=== PATIENT | male | born 1950 | race African-American/Black ===

== ENCOUNTER 2019-02-20 11:23 | Emergency (ER) | payer MEDICARE, BC ==
[2019-02-20] MEDS ORDERED: SODIUM CHLORIDE 0.9% 500 ML 500 ML IV ONE (12:42)
--- NOTE | 2019-02-20 12:42 | ED ---
General Adult HPI - General Chief complaint: Dizziness Stated complaint: Dizziness Time Seen by Provider: 02/20/19 11:30 Source: patient, RN notes reviewed Mode of arrival: ambulatory Limitations: no limitations - History of Present Illness Initial comments: This is a 68-year-old male who presents to the emergency department complaining of having had a syncopal episode. Patient states he was in his doctor's office sitting in a chair and he was getting some news about his cholesterol being high and that made him nervous and he became lightheaded and passed out. According to the staff he was only out for a few seconds and he did not fall because they caught him before he went to the ground. Patient states this has happened in the past he has quite a significant white coat syndrome. Patient denied any chest pain palpitations difficulty breathing or shortness of breath before or after the event. Patient states he felt completely normal prior to the event he did not eat breakfast or drink any coffee or any fluid prior to eating seen at the doctor's office which is abnormal for him. Patient states after he woke up he felt completely back to normal and had no symptoms either. Patient currently has no complaint. - Related Data Home Medications Medication Instructions Recorded Confirmed Carvedilol [Coreg] 12.5 mg PO BID 02/20/19 02/20/19 Isosorbide Mononitrate ER [Imdur] 30 mg PO DAILY 02/20/19 02/20/19 hydrALAZINE HCL [Apresoline] 50 mg PO TID 02/20/19 02/20/19 Previous Rx's Medication Instructions Recorded Aspirin EC [Ecotrin Low Dose] 81 mg PO DAILY #30 tablet. 07/15/15 Atorvastatin [Lipitor] 80 mg PO HS #30 tab 07/15/15 Allergies Allergy/AdvReac Type Severity Reaction Status Date / Time aspirin AdvReac Nausea & Verified 02/20/19 13:26 Vomiting & Diarrhea Review of Systems ROS Statement: Those systems with pertinent positive or pertinent negative responses have been documented in the HPI. ROS Other: All systems not noted in ROS Statement are negative. Past Medical History Past Medical History: GERD/Reflux, Syncope History of Any Multi-Drug Resistant Organisms: None Reported Past Surgical History: No Surgical Hx Reported Additional Past Surgical History / Comment(s): lt knee sx scope and scraping done Past Anesthesia/Blood Transfusion Reactions: No Reported Reaction Past Psychological History: No Psychological Hx Reported Smoking Status: Former smoker Past Alcohol Use History: None Reported Past Drug Use History: None Reported - Past Family History Father Family Medical History: Coronary Artery Disease (CAD), Hypertension Additional Family Medical History / Comment(s): cabg Mother Family Medical History: Coronary Artery Disease (CAD) Additional Family Medical History / Comment(s): aaa, cabg General Exam - General Exam Comments Initial Comments: GENERAL: Patient is well-developed and well-nourished. Patient is nontoxic and well- hydrated and is in no acute distress. ENT: Neck is soft and supple. No significant lymphadenopathy is noted. Oropharynx is clear. Moist mucous membranes. Neck has full range of motion without eliciting any pain. EYES: The sclera were anicteric and conjunctiva were pink and moist. Extraocular movements were intact and pupils were equal round and reactive to light. Eyelids were unremarkable. PULMONARY: Unlabored respirations. Good breath sounds bilaterally. No audible rales rhonchi or wheezing was noted. CARDIOVASCULAR: There is a regular rate and rhythm without any murmurs gallops or rubs. ABDOMEN: Soft and nontender with normal bowel sounds. No palpable organomegaly was noted. There is no palpable pulsatile mass. SKIN: Skin is clear with no lesions or rashes and otherwise unremarkable. NEUROLOGIC: Patient is alert and oriented x3. Cranial nerves II through XII are grossly intact. Motor and sensory are also intact. Normal speech, volume and content. Symmetrical smile. MUSCULOSKELETAL: Normal extremities with adequate strength and full range of motion. No lower extremity swelling or edema. No calf tenderness. LYMPHATICS: No significant lymphadenopathy is noted PSYCHIATRIC: Normal psychiatric evaluation. Limitations: no limitations Course Vital Signs 02/20/19 02/20/19 02/20/19 11:26 13:15 13:45 Temperature 97.4 F L Pulse Rate 61 56 L Pulse Rate [ 66 Sitting Staff Pharmacist] Pulse Rate [ 65 Standing Staff Pharmacist ] Pulse Rate [ 61 Supine Staff Pharmacist] Respiratory 16 18 Rate Blood Pressure 156/99 163/99 Blood Pressure 154/104 [Left Arm Sitting] Blood Pressure 158/102 [Left Arm Standing] Blood Pressure 152/94 [Left Arm Supine] O2 Sat by Pulse 98 100 Oximetry Medical Decision Making - Medical Decision Making Patient has been a symptomatic throughout his ED stay. Patient's orthostatics were normal. Patient would like to go home at this point time. - Lab Data Result diagrams: 02/20/19 11:50 02/20/19 11:50 Lab Results 02/20/19 02/20/19 02/20/19 Range/Units 11:50 11:50 11:50 WBC 7.3 (3.8-10.6) k/uL RBC 4.93 (4.30-5.90) m/uL Hgb 13.2 (13.0-17.5) gm/dL Hct 41.3 (39.0-53.0) % MCV 83.7 (80.0-100.0) fL MCH 26.8 (25.0-35.0) pg MCHC 32.1 (31.0-37.0) g/dL RDW 13.8 (11.5-15.5) % Plt Count 200 (150-450) k/uL Neutrophils % 77 % Lymphocytes % 15 % Monocytes % 4 % Eosinophils % 2 % Basophils % 1 % Neutrophils # 5.7 (1.3-7.7) k/uL Lymphocytes # 1.1 (1.0-4.8) k/uL Monocytes # 0.3 (0-1.0) k/uL Eosinophils # 0.1 (0-0.7) k/uL Basophils # 0.1 (0-0.2) k/uL PT 11.7 (9.0-12.0) sec INR 1.1 (<1.2) Sodium 138 (137-145) mmol/L Potassium 4.2 (3.5-5.1) mmol/L Chloride 105 (98-107) mmol/L Carbon Dioxide 27 (22-30) mmol/L Anion Gap 6 mmol/L BUN 18 (9-20) mg/dL Creatinine 1.31 H (0.66-1.25) mg/dL Est GFR (CKD-EPI)AfAm 65 (>60 ml/min/1.73 sqM) Est GFR (CKD-EPI)NonAf 56 (>60 ml/min/1.73 sqM) Glucose 83 (74-99) mg/dL Calcium 9.3 (8.4-10.2) mg/dL Total Bilirubin 1.0 (0.2-1.3) mg/dL AST 24 (17-59) U/L ALT 31 (21-72) U/L Alkaline Phosphatase 61 (38-126) U/L Troponin I (0.000-0.034) ng/mL Total Protein 7.2 (6.3-8.2) g/dL Albumin 4.1 (3.5-5.0) g/dL 02/20/19 Range/Units 11:50 WBC (3.8-10.6) k/uL RBC (4.30-5.90) m/uL Hgb (13.0-17.5) gm/dL Hct (39.0-53.0) % MCV (80.0-100.0) fL MCH (25.0-35.0) pg MCHC (31.0-37.0) g/dL RDW (11.5-15.5) % Plt Count (150-450) k/uL Neutrophils % % Lymphocytes % % Monocytes % % Eosinophils % % Basophils % % Neutrophils # (1.3-7.7) k/uL Lymphocytes # (1.0-4.8) k/uL Monocytes # (0-1.0) k/uL Eosinophils # (0-0.7) k/uL Basophils # (0-0.2) k/uL PT (9.0-12.0) sec INR (<1.2) Sodium (137-145) mmol/L Potassium (3.5-5.1) mmol/L Chloride (98-107) mmol/L Carbon Dioxide (22-30) mmol/L Anion Gap mmol/L BUN (9-20) mg/dL Creatinine (0.66-1.25) mg/dL Est GFR (CKD-EPI)AfAm (>60 ml/min/1.73 sqM) Est GFR (CKD-EPI)NonAf (>60 ml/min/1.73 sqM) Glucose (74-99) mg/dL Calcium (8.4-10.2) mg/dL Total Bilirubin (0.2-1.3) mg/dL AST (17-59) U/L ALT (21-72) U/L Alkaline Phosphatase (38-126) U/L Troponin I 0.013 (0.000-0.034) ng/mL Total Protein (6.3-8.2) g/dL Albumin (3.5-5.0) g/dL Disposition Clinical Impression: Orthostatic syncope Disposition: HOME SELF-CARE Condition: Good Instructions (If sedation given, give patient instructions): Syncope (ED) Is patient prescribed a controlled substance at d/c from ED?: No Referrals: Ananda Naik MD [Primary Care Provider] - 1-2 days Time of Disposition: 14:08
[2019-02-20 13:02] LABS: Basophils # (A) 0.1 k/uL (0-0.2); Basophils % (A) 1 %; Eosinophils # (A) 0.1 k/uL (0-0.7); Eosinophils % (A) 2 %; HCT 41.3 % (39.0-53.0); HGB 13.2 gm/dL (13.0-17.5); Lymphocytes # (A) 1.1 k/uL (1.0-4.8); Lymphocytes % (A) 15 %; MCH 26.8 pg (25.0-35.0); MCHC 32.1 g/dL (31.0-37.0); MCV 83.7 fL (80.0-100.0); Mean Platelet Volume 9.1; Monocytes # (A) 0.3 k/uL (0-1.0); Monocytes % (A) 4 %; Neutrophils # (A) 5.7 k/uL (1.3-7.7); Neutrophils % (A) 77 %; Platelet Count 200 k/uL (150-450); RBC 4.93 m/uL (4.30-5.90); RDW 13.8 % (11.5-15.5); WBC 7.3 k/uL (3.8-10.6)
[2019-02-20 13:06] LABS: Albumin 4.1 g/dL (3.5-5.0); Calcium 9.3 mg/dL (8.4-10.2); Potassium 4.2 mmol/L (3.5-5.1); Total Protein 7.2 g/dL (6.3-8.2)
[2019-02-20 13:22] LABS: INR 1.1 (<1.2)
[2019-02-20 13:23] LABS: Prothrombin Time 11.7 sec (9.0-12.0)
[2019-02-20 13:55] VITALS: RESP 18
[2019-02-20 14:26] VITALS: BP 168/95; PULSE 61; TEMP 97.8
== END 2019-02-20 14:25 | disposition home or self-care (01) ==
LOC: EC 11:23
DX: R55 Syncope and collapse (principal); R42 Dizziness and giddiness; Z79.02 Long term (current) use of antithrombotics/antiplatelets; Z79.899 Other long term (current) drug therapy; Z88.6 Allergy status to analgesic agent; Z87.891 Personal history of nicotine dependence
CPT/HCPCS: 36415; 80053; 84484; 85025; 85610; 93005; 99284

== ENCOUNTER 2023-11-10 20:01 | Observation (INO) | payer MEDICARE, BC ==
[2023-11-10 20:41] LABS: Basophils % (A) 1 %; Eosinophils # (A) 0.2 k/uL (0-0.7); Eosinophils % (A) 3 %; HCT 43.8 % (39.0-53.0); HGB 14.1 gm/dL (13.0-17.5); Hypochromasia Slight; Lymphocytes # (A) 1.2 k/uL (1.0-4.8); Lymphocytes % (A) 26 %; MCH 28.8 pg (25.0-35.0); MCHC 32.1 g/dL (31.0-37.0); MCV 89.6 fL (80.0-100.0); Mean Platelet Volume 10.9; Monocytes # (A) 0.3 k/uL (0-1.0); Monocytes % (A) 6 %; Neutrophils # (A) 2.9 k/uL (1.3-7.7); Neutrophils % (A) 62 %; Platelet Count 153 k/uL (150-450); RBC 4.89 m/uL (4.30-5.90); WBC 4.6 k/uL (3.8-10.6)
--- NOTE | 2023-11-10 20:51 | XR ---
EXAMINATION TYPE: XR chest 2V DATE OF EXAM: 11/10/2023 8:32 PM CLINICAL INDICATION:Male, 73 years old with history of difficulty breathing; COMPARISON: Chest radiographs from 07/14/2015. TECHNIQUE: XR chest 2V Frontal and lateral views of the chest. FINDINGS: Lungs/Pleura there is fluid layering along the lung fissures bilaterally.: There is no evidence of fo andrew consolidation, or pneumothorax. Pulmonary vascularity: Unremarkable. Heart/mediastinum: Cardiomediastinal silhouette is unremarkable. Atherosclerotic calcifications are seen in the aorta. Musculoskeletal: No acute osseous pathology. Midline sternotomy wires are noted. Other findings: None IMPRESSION: Cardiomegaly with pleural effusions layering along the fissures. Correlate with serum BNP.
[2023-11-10 20:52] LABS: INR 1.1 (<1.2); Partial Thromboplastin Time 26.6 sec (22.0-30.0); Prothrombin Time 12.2 sec (10.0-12.5)
[2023-11-10 21:09] LABS: ALT 31 U/L (4-49); AST 31 U/L (17-59); African American GFR (CKD) 53 (>60 ml/min/1.73 sqM); Alkaline Phosphatase 83 U/L (38-126); Anion Gap 12 mmol/L; Blood Urea Nitrogen 23 mg/dL (9-20); Carbon Dioxide 24 mmol/L (22-30); Chloride 104 mmol/L (98-107); Glucose 107 mg/dL (74-99); Non-African American GFR(CKD) 46 (>60 ml/min/1.73 sqM); Potassium 3.9 mmol/L (3.5-5.1); Sodium 140 mmol/L (137-145); Total Bilirubin 1.3 mg/dL (0.2-1.3)
[2023-11-10 21:16] LABS: NT-Pro-B-Type Natriuretic Pept 6650 pg/mL
--- NOTE | 2023-11-10 23:40 | ED ---
General Adult HPI - General Source: patient Mode of arrival: ambulatory Limitations: no limitations <Jose A Adair - Last Filed: 11/10/23 23:41> <Erick Marques - Last Filed: 11/11/23 04:02> - General Chief complaint: Shortness of Breath Stated complaint: SOB Time Seen by Provider: 11/10/23 23:40 - History of Present Illness Initial comments: 73-year-old male presents to the ED with a chief complaint of shortness of breath. Patient reports over the past month or so has had increasing shortness of breath and swelling in his bilateral lower legs. (Jose A Adair) 73-year-old male presenting with chief complaint of shortness of breath. Patient reports that shortness of breath has been increasing over about 3 weeks. He also noted increasing lower extremity swelling which prompted him to come in today. He is having no chest pain. Patient reports that he has not been taking his blood pressure medication. He states that previously he had severe lip swelling to one of his blood pressure medications and he has been afraid to take his new medication and cause a similar reaction. No palpitations. No abdominal pain, nausea, vomiting. No numbness, tingling, weakness. (Erick Marques) - Related Data Home Medications Medication Instructions Recorded Confirmed Isosorbide Mononitrate ER [Imdur] 30 mg PO DAILY 02/20/19 02/20/19 carvediloL [Coreg] 12.5 mg PO BID 02/20/19 02/20/19 hydrALAZINE HCL [Apresoline] 50 mg PO TID 02/20/19 02/20/19 Previous Rx's Medication Instructions Recorded Aspirin EC [Ecotrin Low Dose] 81 mg PO DAILY #30 tablet. 07/15/15 Atorvastatin [Lipitor] 80 mg PO HS #30 tab 07/15/15 Allergies Allergy/AdvReac Type Severity Reaction Status Date / Time aspirin AdvReac Nausea & Verified 11/10/23 20:10 Vomiting & Diarrhea Review of Systems ROS Other: All systems not noted in ROS Statement are negative. <Jose A Adair - Last Filed: 11/10/23 23:41> ROS Other: All systems not noted in ROS Statement are negative. <Erick Marques - Last Filed: 11/11/23 04:02> ROS Statement: Those systems with pertinent positive or pertinent negative responses have been documented in the HPI. Past Medical History Past Medical History: GERD/Reflux, Syncope History of Any Multi-Drug Resistant Organisms: None Reported Past Surgical History: No Surgical Hx Reported Additional Past Surgical History / Comment(s): lt knee sx scope and scraping done Past Anesthesia/Blood Transfusion Reactions: No Reported Reaction Past Psychological History: No Psychological Hx Reported Past Alcohol Use History: None Reported Past Drug Use History: None Reported - Past Family History Father Family Medical History: Coronary Artery Disease (CAD), Hypertension Additional Family Medical History / Comment(s): cabg Mother Family Medical History: Coronary Artery Disease (CAD) Additional Family Medical History / Comment(s): aaa, cabg <Jose A Adair - Last Filed: 11/10/23 23:41> General Exam Limitations: no limitations <Jose A Adair - Last Filed: 11/10/23 23:41> Limitations: no limitations General appearance: alert, in no apparent distress Head exam: Present: atraumatic, normocephalic Eye exam: Present: normal appearance Neck exam: Present: normal inspection Respiratory exam: Present: normal lung sounds bilaterally. Absent: respiratory distress, wheezes, rales, rhonchi, stridor Cardiovascular Exam: Present: regular rate, normal rhythm, normal heart sounds. Absent: systolic murmur, diastolic murmur, rubs, gallop, clicks Extremities exam: Present: pedal edema Neurological exam: Present: alert, oriented X3 Psychiatric exam: Present: normal affect, normal mood Skin exam: Present: warm, dry <Erick Marques - Last Filed: 11/11/23 04:02> - General Exam Comments Initial Comments: Visual Physical Exam Vital signs reviewed General: Well-appearing, nontoxic, no acute distress. Head: Normocephalic, atraumatic Eyes: PERRLA, EOMI ENT: Airway patent Chest: Nonlabored breathing Skin: No visual rash, normal skin tone Neuro: Alert and oriented 3 Musculoskeletal: No gross abnormalities (Jose A Adair) Course Vital Signs 11/10/23 11/11/23 11/11/23 20:08 01:37 01:46 Temperature 97.4 F L Pulse Rate 127 H 81 79 Respiratory 18 17 17 Rate Blood Pressure 175/106 145/125 135/111 O2 Sat by Pulse 97 98 98 Oximetry 11/11/23 11/11/23 01:48 02:51 Temperature Pulse Rate 100 Respiratory 16 19 Rate Blood Pressure 139/111 O2 Sat by Pulse 99 Oximetry EKG Findings - EKG Comments: EKG Findings:: Sinus rhythm with occasional ventricular premature complexes. Ventricular rate 93. DC interval 155. QRS 90. QT 350. QTc 401. <Erick Marques - Last Filed: 11/11/23 04:02> Medical Decision Making - Lab Data Result diagrams: 11/10/23 20:11 11/10/23 20:11 <Jose A Adair - Last Filed: 11/10/23 23:41> - Lab Data Result diagrams: 11/10/23 20:11 11/10/23 20:11 <Erick Marques - Last Filed: 11/11/23 04:02> - Medical Decision Making Quicknote portion performed. Signed Jose A Adair PA-C (Jose A Adair) Was pt. sent in by a medical professional or institution ([facility], [facility], urgent care, hospital, or fpc...) When possible be specific @ -No Did you speak to anyone other than the patient for history (EMS, parent, family, police, friend...)? What history was obtained from this source @ -No Did you review nursing and triage notes (agree or disagree)? Why? @ -I reviewed and agree with nursing and triage notes Were old charts reviewed (outside hosp., previous admission, EMS record, old EKG, old radiological studies, urgent care reports/EKG's, fpc records)? Report findings @ -No old charts were reviewed Differential Diagnosis (chest pain, altered mental status, abdominal pain women, abdominal pain men, vaginal bleeding, weakness, fever, dyspnea, syncope, headache, dizziness, GI bleed, back pain, seizure, CVA, palpatations, mental health, musculoskeletal)? @ -MDM Differential Dyspnea: Coronary syndrome, arrhythmia, tamponade, asthma, COPD, pulmonary embolism, pneumonia, pneumothorax, pulmonary effusion, anaphylaxis, diabetic ketoacidosis, flailed chest, pulmonary contusion, diaphragmatic rupture, anemia, neuromuscular this is not meant to be an all-inclusive list. EKG interpreted by me (3pts min.). @ -As above X-rays interpreted by me (1pt min.). @ -Chest x-ray shows cardiomegaly with pleural effusions layering along fissures. Correlate with serum BNP. CT interpreted by me (1pt min.). @ -None done U/S interpreted by me (1pt. min.). @ -None done What testing was considered but not performed or refused? (CT, X-rays, U/S, labs)? Why? @ -None What meds were considered but not given or refused? Why? @ -None Did you discuss the management of the patient with other professionals (professionals i.e. DrDeonna, PA, [employer] [facility], lab, RT, psych nurse, community mental health social worker, date night sitter, teacher, staff antisubmarine officer, transplant case manager)? Give summary @ -My attending spoke with the [facility] provider on-call who accepted admission Was smoking cessation discussed for >3mins.? @ -No Was critical care preformed (if so, how long)? @ -No Were there social determinants of health that impacted care today? How? (Homelessness, low income, unemployed, alcoholism, drug addiction, transportation, low edu. Level, literacy, decrease access to med. care, shelter, rehab)? @ -No Was there de-escalation of care discussed even if they declined (Discuss DNR or withdrawal of care, Hospice)? DNR status @ -No What co-morbidities impacted this encounter? (DM, HTN, Smoking, COPD, CAD, Cancer, CVA, ARF, Chemo, Hep., AIDS, mental health diagnosis, sleep apnea, morbid obesity)? @ -Hypertension, CHF Was patient admitted / discharged? Hospital course, mention meds given and route, prescriptions, significant lab abnormalities, going to OR and other pertinent info. @ -73-year-old male presenting with chief complaint of shortness of breath or lower extremity swelling. History of physical exam were conducted. BNP 6650 troponin 0.022. Chest x-ray shows cardiomegaly with pleural effusions. Patient is initially hypertensive at 175/106, he is given 10 mg of hydralazine IVP. He is given Lasix 40 mg. He will be admitted for CHF exacerbation. Patient is agreeable with this plan. I discussed this case with my attending Dr. Madrigal Undiagnosed new problem with uncertain prognosis? @ -No Drug Therapy requiring intensive monitoring for toxicity (Heparin, Nitro, Insulin, Cardizem)? @ -No Were any procedures done? @ -No Diagnosis/symptom? @ -CHF Acute, or Chronic, or Acute on Chronic? @ -Acute on chronic Uncomplicated (without systemic symptoms) or Complicated (systemic symptoms)? @ -Complicated Side effects of treatment? @ -No Exacerbation, Progression, or Severe Exacerbation? @ -Exacerbation Poses a threat to life or bodily function? How? (Chest pain, USA, ID, pneumonia, PE, COPD, DKA, ARF, appy, cholecystitis, CVA, Diverticulitis, Homicidal, Suicidal, threat to staff... and all critical care pts) @ -Yes (Erick Marques) - Lab Data Lab Results 11/10/23 11/10/23 11/10/23 Range/Units 20:11 20:11 20:11 WBC 4.6 (3.8-10.6) k/uL RBC 4.89 (4.30-5.90) m/uL Hgb 14.1 (13.0-17.5) gm/dL Hct 43.8 (39.0-53.0) % MCV 89.6 (80.0-100.0) fL MCH 28.8 (25.0-35.0) pg MCHC 32.1 (31.0-37.0) g/dL RDW 14.0 (11.5-15.5) % Plt Count 153 (150-450) k/uL MPV 10.9 Neutrophils % 62 % Lymphocytes % 26 % Monocytes % 6 % Eosinophils % 3 % Basophils % 1 % Neutrophils # 2.9 (1.3-7.7) k/uL Lymphocytes # 1.2 (1.0-4.8) k/uL Monocytes # 0.3 (0-1.0) k/uL Eosinophils # 0.2 (0-0.7) k/uL Basophils # 0.0 (0-0.2) k/uL Hypochromasia Slight PT 12.2 (10.0-12.5) sec INR 1.1 (<1.2) APTT 26.6 (22.0-30.0) sec Sodium 140 (137-145) mmol/L Potassium 3.9 (3.5-5.1) mmol/L Chloride 104 (98-107) mmol/L Carbon Dioxide 24 (22-30) mmol/L Anion Gap 12 mmol/L BUN 23 H (9-20) mg/dL Creatinine 1.51 H (0.66-1.25) mg/dL Est GFR (CKD-EPI)AfAm 53 (>60 ml/min/1.73 sqM) Est GFR (CKD-EPI)NonAf 46 (>60 ml/min/1.73 sqM) Glucose 107 H (74-99) mg/dL Calcium 9.0 (8.4-10.2) mg/dL Total Bilirubin 1.3 (0.2-1.3) mg/dL AST 31 (17-59) U/L ALT 31 (4-49) U/L Alkaline Phosphatase 83 (38-126) U/L Troponin I (0.000-0.034) ng/mL NT-Pro-B Natriuret Pep 6650 pg/mL Total Protein 7.0 (6.3-8.2) g/dL Albumin 4.0 (3.5-5.0) g/dL 11/10/23 Range/Units 20:11 WBC (3.8-10.6) k/uL RBC (4.30-5.90) m/uL Hgb (13.0-17.5) gm/dL Hct (39.0-53.0) % MCV (80.0-100.0) fL MCH (25.0-35.0) pg MCHC (31.0-37.0) g/dL RDW (11.5-15.5) % Plt Count (150-450) k/uL MPV Neutrophils % % Lymphocytes % % Monocytes % % Eosinophils % % Basophils % % Neutrophils # (1.3-7.7) k/uL Lymphocytes # (1.0-4.8) k/uL Monocytes # (0-1.0) k/uL Eosinophils # (0-0.7) k/uL Basophils # (0-0.2) k/uL Hypochromasia PT (10.0-12.5) sec INR (<1.2) APTT (22.0-30.0) sec Sodium (137-145) mmol/L Potassium (3.5-5.1) mmol/L Chloride (98-107) mmol/L Carbon Dioxide (22-30) mmol/L Anion Gap mmol/L BUN (9-20) mg/dL Creatinine (0.66-1.25) mg/dL Est GFR (CKD-EPI)AfAm (>60 ml/min/1.73 sqM) Est GFR (CKD-EPI)NonAf (>60 ml/min/1.73 sqM) Glucose (74-99) mg/dL Calcium (8.4-10.2) mg/dL Total Bilirubin (0.2-1.3) mg/dL AST (17-59) U/L ALT (4-49) U/L Alkaline Phosphatase (38-126) U/L Troponin I 0.022 (0.000-0.034) ng/mL NT-Pro-B Natriuret Pep pg/mL Total Protein (6.3-8.2) g/dL Albumin (3.5-5.0) g/dL Disposition <Jose A Adair - Last Filed: 11/10/23 23:41> Time of Disposition: 02:06 <Erick Marques - Last Filed: 11/11/23 04:02> Clinical Impression: CHF (congestive heart failure) Disposition: ADMITTED IP TO THIS HOSP Condition: Fair
[2023-11-11] MEDS ORDERED: hydrALAZINE HCL 20 MG/ML 1 ML VIAL IVP STA (01:17)
[2023-11-11] MEDS ORDERED: NALOXONE 0.4 MG/ML 1 ML VIAL IV PRN (02:04)
[2023-11-11] MEDS ORDERED: FUROSEMIDE 10 MG/ML 4 ML VIAL IV STA (02:05)
[2023-11-11] MEDS ORDERED: carvediloL 3.125 MG TAB PO SCH (08:30)
[2023-11-11] MEDS ORDERED: METOPROLOL SUCCINATE (ER) 25 MG TAB.ER.24H PO SCH (09:00)
[2023-11-11] MEDS: ASPIRIN 81 MG PO SCH (09:03)
[2023-11-11] MEDS: hydrALAZINE HCL 25 MG TAB PO SCH ×3 (09:04→22:49)
[2023-11-11] MEDS: ISOSORBIDE DINITRATE 10 MG TAB PO SCH ×3 (09:05→22:49)
[2023-11-11] MEDS: DAPAGLIFLOZIN PROPANEDIOL 10 MG TABLET PO SCH (09:06)
[2023-11-11] MEDS: FUROSEMIDE 10 MG/ML 4 ML VIAL IV SCH ×2 (09:07→20:38)
--- NOTE | 2023-11-11 10:16 | P.CRDCN ---
History of Present Illness History of present illness: HISTORY OF PRESENT ILLNESS: This is a 73 year old male with a past medical history significant for coronary artery disease with previous four-vessel CABG in 2015, ischemic cardiomyopathy, hypertension, hyperlipidemia, and former nicotine dependence. Patient used to follow in the office with Dr Goodman but has not been seen since 2019. We have been asked to see the patient in consultation for congestive heart failure. Patient examined at the bedside in the emergency room. Patient presented to the hospital with a chief complaint of shortness of breath and lower extremity edema. The patient states he has not seen a gore maker or a primary care physician and a few years. He states he has been doing well over the past couple years despite not seen a physician until the last couple weeks. He states he has been getting progressively more short of breath and having increased lower extremity edema. He also reports that he stopped taking all of his medications because he felt well and did not think he needed them. He does report taking a baby aspirin daily. * EKG reveals sinus mechanism with PVCs. * Chest xray cardiomegaly with pleural effusions * Laboratory data: Creatinine 1.51. Troponin negative 2. ProBNP 6650. * Current home cardiac medications include aspirin 81 mg daily * Most recent echocardiogram obtained in 2019 revealed ejection fraction 38% with mild MR and mild TR * Patient underwent 4 vessel CABG in June 2015 with DUQUE to LAD, VGOM1, VGD1, VGPDA REVIEW OF SYSTEMS: At the time of my exam: CONSTITUTIONAL: Denies fever or chills. HEENT: Denies blurred vision, vision changes, or eye pain. Denies hemoptysis CARDIOVASCULAR: Denies chest pain. Denies orthopnea. Denies PND. Denies palpitations RESPIRATORY: Reports shortness of breath. GASTROINTESTINAL: Denies abdominal pain. Denies nausea or vomiting. HEMATOLOGIC: Denies bleeding disorders. GENITOURINARY: Denies any blood in urine. SKIN: Denies pruitis. Denies rash. PHYSICAL EXAM: VITAL SIGNS: Reviewed. GENERAL: Well-developed in no acute distress. HEENT: Head is normocephalic. Pupils are equal, round. Sclerae anicteric. Mucous membranes of the mouth are moist. Neck supple. No JVD or thyromegaly LUNGS: Respirations even and unlabored. Lungs with bibasilar crackles noted HEART: Regular rate and rhythm. S1 and S2 heard. Systolic murmur noted at the right sternal border and also a 3/6 systolic murmur noted at the apex ABDOMEN: Soft. Nondistended. Nontender. EXTREMITIES: Normal range of motion. No clubbing or cyanosis. Peripheral pulses intact. 3+ pitting lower extremity edema, right greater than left NEUROLOGIC: Awake and alert. Oriented x 3. ASSESSMENT: Shortness of breath Acute heart failure with reduced ejection fraction Coronary artery disease with four-vessel CABG in 2015 Significant systolic murmur suggestive of mitral regurgitation Ischemic cardiomyopathy Acute kidney injury Hypertension Hyperlipidemia Former nicotine dependence Medication noncompliance ALLERGY to cary inhibitors with severe angioedema PLAN: Obtain 2-D echo to assess cardiac structure and function Begin IV Lasix 40 mg every 12 hours Daily weights, accurate I&O, and monitoring of kidney function Add aspirin 81 mg daily, atorvastatin 40 mg at night, hydralazine 25 mg 3 times a day, Isordil 10 mg 3 times a day, Toprol 25 mg daily and Farxiga 10 mg daily Patient with ALLERGY to cary inhibitors with severe angioedema Add Aldactone tomorrow if kidney function improves Medication compliance encouraged. Patient verbalized understanding Further recommendations pending patient's course Nurse practitioner note has been reviewed by physician. Signing provider agrees with the documented findings, assessment, and plan of care. Past Medical History Past Medical History: GERD/Reflux, Syncope History of Any Multi-Drug Resistant Organisms: None Reported Past Surgical History: No Surgical Hx Reported Additional Past Surgical History / Comment(s): lt knee sx scope and scraping done Past Anesthesia/Blood Transfusion Reactions: No Reported Reaction Past Psychological History: No Psychological Hx Reported Past Alcohol Use History: None Reported Past Drug Use History: None Reported - Past Family History Father Family Medical History: Coronary Artery Disease (CAD), Hypertension Additional Family Medical History / Comment(s): cabg Mother Family Medical History: Coronary Artery Disease (CAD) Additional Family Medical History / Comment(s): aaa, cabg Medications and Allergies Home Medications Medication Instructions Recorded Confirmed Type No Known Home Medications 11/11/23 11/11/23 History Allergies Allergy/AdvReac Type Severity Reaction Status Date / Time aspirin AdvReac Nausea & Verified 11/11/23 08:45 Vomiting & Diarrhea Physical Exam Vitals: Vital Signs Temp Pulse Resp BP Pulse Ox 11/11/23 09:00 85 16 108/67 98 11/11/23 08:09 98.4 F 90 16 117/84 97 11/11/23 06:53 97.6 F 71 18 111/77 97 11/11/23 04:56 97.9 F 78 17 120/89 98 11/11/23 04:30 62 19 133/104 98 11/11/23 03:30 58 L 18 140/95 97 11/11/23 02:51 100 19 139/111 99 11/11/23 01:48 16 11/11/23 01:46 79 17 135/111 98 11/11/23 01:37 81 17 145/125 98 11/10/23 20:08 97.4 F L 127 H 18 175/106 97 Intake and Output 11/10/23 11/11/23 11/11/23 22:59 06:59 14:59 Output Total 3000 Balance -3000 Output: Urine 3000 Other: Weight 72.121 kg Results 11/10/23 20:11 11/10/23 20:11 Cardiac Enzymes 11/10/23 11/10/23 11/11/23 Range/Units 20:11 20:11 02:45 AST 31 (17-59) U/L Troponin I 0.022 0.026 (0.000-0.034) ng/mL Coagulation 11/10/23 Range/Units 20:11 PT 12.2 (10.0-12.5) sec APTT 26.6 (22.0-30.0) sec CBC 11/10/23 Range/Units 20:11 WBC 4.6 (3.8-10.6) k/uL RBC 4.89 (4.30-5.90) m/uL Hgb 14.1 (13.0-17.5) gm/dL Hct 43.8 (39.0-53.0) % Plt Count 153 (150-450) k/uL Comprehensive Metabolic Panel 11/10/23 Range/Units 20:11 Sodium 140 (137-145) mmol/L Potassium 3.9 (3.5-5.1) mmol/L Chloride 104 (98-107) mmol/L Carbon Dioxide 24 (22-30) mmol/L BUN 23 H (9-20) mg/dL Creatinine 1.51 H (0.66-1.25) mg/dL Glucose 107 H (74-99) mg/dL Calcium 9.0 (8.4-10.2) mg/dL AST 31 (17-59) U/L ALT 31 (4-49) U/L Alkaline Phosphatase 83 (38-126) U/L Total Protein 7.0 (6.3-8.2) g/dL Albumin 4.0 (3.5-5.0) g/dL Current Medications Generic Name Dose Route Start Last Admin Trade Name Freq PRN Reason Stop Dose Admin Aspirin 81 mg 11/11/23 09:00 11/11/23 09:03 Aspirin 81 Mg PO 81 mg DAILY FRED Administration Atorvastatin Calcium 40 mg 11/11/23 21:00 Atorvastatin 40 Mg Tab PO HS FRED Dapagliflozin 10 mg 11/11/23 09:00 11/11/23 09:06 Dapagliflozin Propanediol 10 Mg Tablet PO 10 mg DAILY FRED Administration Furosemide 40 mg 11/11/23 09:00 11/11/23 09:07 Furosemide 10 Mg/Ml 4 Ml Vial IV 40 mg Q12HR FRED Administration Hydralazine HCl 25 mg 11/11/23 09:00 11/11/23 09:04 Hydralazine Hcl 25 Mg Tab PO 25 mg TID FRED Administration Isosorbide Dinitrate 10 mg 11/11/23 09:00 11/11/23 09:05 Isosorbide Dinitrate 10 Mg Tab PO 10 mg TID FRED Administration Metoprolol Succinate 25 mg 11/11/23 09:00 11/11/23 09:04 Metoprolol Succinate (Er) 25 Mg Tab.Er.24h PO 25 mg DAILY FRED Administration Naloxone HCl 0.2 mg 11/11/23 02:04 Naloxone 0.4 Mg/Ml 1 Ml Vial IV Q2M PRN Opioid Reversal Intake and Output 11/10/23 11/11/23 11/11/23 22:59 06:59 14:59 Output Total 3000 Balance -3000 Output: Urine 3000 Other: Weight 72.121 kg 11/10/23 20:11 11/10/23 20:11
--- NOTE | 2023-11-11 10:26 | CA ---
Transthoracic Echo Report Name: Vincenzo Ervin Age: 73 Gender: M : 1950 Exam Date: 11/11/2023 08:36 Exam Location: [facility] Ht (in): 73 Wt (lb): 159 Ordering Physician: Daysi Chacon Attending/Referring Phys: [id number], Ines [employer] Katie Canada RDCS Procedure CPT: Indications: LV function Cardiac Hx: Technical Quality: Good Contrast 1: Total Dose (mL): Contrast 2: Total Dose (mL): MEASUREMENTS (Male / Female) Normal Values 2D ECHO LV Diastolic Diameter PLAX 5.9 cm 4.2 - 5.9 / 3.9 - 5.3 cm LV Systolic Diameter PLAX 5.6 cm IVS Diastolic Thickness 1.0 cm 0.6 - 1.0 / 0.6 - 0.9 cm LVPW Diastolic Thickness 0.9 cm 0.6 - 1.0 / 0.6 - 0.9 cm LV Relative Wall Thickness 0.3 RV Internal Dim ED PLAX 2.8 cm LA Systolic Diameter LX 3.5 cm 3.0 - 4.0 / 2.7 - 3.8 cm LV Diastolic Volume MOD 4C 95.0 cm??? LV Systolic Volume MOD 4C 67.7 cm??? LV Ejection Fraction MOD 4C 28.8 % LV Cardiac Index MOD 4C 1226.2 cm???/min???m??? LV Diastolic Length 4C 7.9 cm LV Systolic Length 4C 7.8 cm LV Diastolic Volume MOD 2C 207.4 cm??? LV Systolic Volume MOD 2C 138.6 cm??? LV Ejection Fraction MOD 2C 33.2 % LV Cardiac Index MOD 2C 3085.1 cm???/min???m??? LV Diastolic Length 2C 9.8 cm LV Systolic Length 2C 9.7 cm LA Volume 39.4 cm??? 18 - 58 / 22 - 52 cm??? LA Volume Index 20.5 cm???/m??? 16 - 28 cm???/m??? M-MODE Aortic Root Diameter MM 3.5 cm MV E Point Septal Separation 2.0 cm AV Cusp Separation MM 2.1 cm DOPPLER MV Area PHT 3.9 cm??? Mitral E Point Velocity 83.3 cm/s Mitral A Point Velocity 54.9 cm/s Mitral E to A Ratio 1.5 MV Deceleration Time 196.2 ms MV E' Velocity 3.8 cm/s Mitral E to MV E' Ratio 21.7 TR Peak Velocity 280.2 cm/s TR Peak Gradient 31.4 mmHg Right Ventricular Systolic Press 36.4 mmHg FINDINGS Left Ventricle Left ventricular ejection fraction is estimated at 15-20 %. Left ventricular cavity size normal. Left ventricular wall thickness normal. Anteroapical and anteroseptal wall akinesis. The rest of the wall are hypokinetic Right Ventricle Normal right ventricular size and function. Mild pulmonary hypertension. Right Atrium Normal right atrial size. Left Atrium Normal left atrial size. Mitral Valve Structurally normal mitral valve. Mild mitral regurgitation. Aortic Valve Trileaflet aortic valve. No aortic valve stenosis or regurgitation.aortic valve sclerosis. Tricuspid Valve Structurally normal tricuspid valve. Mild tricuspid regurgitation. Pulmonic Valve Structurally normal pulmonic valve. No pulmonic regurgitation. Pericardium No pericardial effusion. Aorta Normal size aortic root and proximal ascending aorta. CONCLUSIONS 1. Severely impaired left ventricular systolic function with segmental wall motion abnormality 2. Mild mitral and tricuspid regurgitation Previewed by: Dr. Mayank Goodman MD (Electronically Signed) Final Date: 11 November 2023 10:26
[2023-11-11 16:16] LABS: Chol/HDL Ratio 2.94 Ratio; LDL Cholesterol,Calculated 121.8 mg/dL (0.0-131.0); VLDL Calculation 8.18 mg/dL (5.00-40.00)
--- NOTE | 2023-11-11 19:02 | P.HPIM ---
History of Present Illness H&P Date: 11/11/23 Chief Complaint: Shortness of breath 73-year-old male presenting with chief complaint of shortness of breath. Patient reports that shortness of breath has been increasing over about 3 weeks. He also noted increasing lower extremity swelling which prompted him to come in today. He is having no chest pain. Patient reports that he has not been taking his blood pressure medication. He states that previously he had severe lip swelling to one of his blood pressure medications and he has been afraid to take his new medication and cause a similar reaction. No palpitations. No abdominal pain, nausea, vomiting. No numbness, tingling, weakness. EKG reveals sinus mechanism with PVCs. Chest xray cardiomegaly with pleural effusions Laboratory data: Creatinine 1.51. Troponin negative 2. ProBNP 6650. Current home cardiac medications include aspirin 81 mg daily Most recent echocardiogram obtained in 2018 revealed ejection fraction 38% with mild MR and mild TR Patient underwent 4 vessel CABG in June 2015 with DUQUE to LAD, VGOM1, VGD1, VGPDA Review of Systems REVIEW OF SYSTEMS: CONSTITUTIONAL: No fever, no malaise, no fatigue. HEENT: No recent visual problems or hearing problems. Denied any sore throat. CARDIOVASCULAR: No chest pain, orthopnea, PND, no palpitations, no syncope. PULMONARY: No shortness of breath, no cough, no hemoptysis. GASTROINTESTINAL: No diarrhea, no nausea, no vomiting, no abdominal pain. NEUROLOGICAL: No headaches, no weakness, no numbness. HEMATOLOGICAL: Denies any bleeding or petechiae. GENITOURINARY: Denies any burning micturition, frequency, or urgency. MUSCULOSKELETAL/RHEUMATOLOGICAL: Denies any joint pain, swelling, or any muscle pain. ENDOCRINE: Denies any polyuria or polydipsia. The rest of the 14-point review of systems is negative. Past Medical History Past Medical History: GERD/Reflux, Syncope History of Any Multi-Drug Resistant Organisms: None Reported Past Surgical History: No Surgical Hx Reported Additional Past Surgical History / Comment(s): lt knee sx scope and scraping done Past Anesthesia/Blood Transfusion Reactions: No Reported Reaction Past Psychological History: No Psychological Hx Reported Past Alcohol Use History: None Reported Past Drug Use History: None Reported - Past Family History Father Family Medical History: Coronary Artery Disease (CAD), Hypertension Additional Family Medical History / Comment(s): cabg Mother Family Medical History: Coronary Artery Disease (CAD) Additional Family Medical History / Comment(s): aaa, cabg Medications and Allergies Home Medications Medication Instructions Recorded Confirmed Type Aspirin EC [Ecotrin Low Dose] 81 mg PO DAILY 11/11/23 11/11/23 History Multivitamins, Thera [Multivitamin 1 tab PO DAILY 11/11/23 11/11/23 History (formulary)] Allergies Allergy/AdvReac Type Severity Reaction Status Date / Time CARY Inhibitors Allergy Unknown Verified 11/11/23 17:41 Physical Exam Vitals: Vital Signs Temp Pulse Resp BP Pulse Ox 11/11/23 12:37 75 18 110/68 95 11/11/23 09:00 85 16 108/67 98 11/11/23 08:09 98.4 F 90 16 117/84 97 11/11/23 06:53 97.6 F 71 18 111/77 97 11/11/23 04:56 97.9 F 78 17 120/89 98 11/11/23 04:30 62 19 133/104 98 11/11/23 03:30 58 L 18 140/95 97 11/11/23 02:51 100 19 139/111 99 11/11/23 01:48 16 11/11/23 01:46 79 17 135/111 98 11/11/23 01:37 81 17 145/125 98 11/10/23 20:08 97.4 F L 127 H 18 175/106 97 Intake and Output 11/10/23 11/11/23 11/11/23 22:59 06:59 14:59 Output Total 3000 Balance -3000 Output: Urine 3000 Other: Weight 72.121 kg General appearance: alert, in no apparent distress Head exam: Present: atraumatic, normocephalic Eye exam: Present: normal appearance Neck exam: Present: normal inspection Respiratory exam: Present: normal lung sounds bilaterally. Absent: respiratory distress, wheezes, rales, rhonchi, stridor Cardiovascular Exam: Present: regular rate, normal rhythm, normal heart sounds. Absent: systolic murmur, diastolic murmur, rubs, gallop, clicks Extremities exam: Present: pedal edema Neurological exam: Present: alert, oriented X3 Psychiatric exam: Present: normal affect, normal mood Skin exam: Present: warm, dry Results CBC & Chem 7: 11/10/23 20:11 11/10/23 20:11 Labs: Abnormal Lab Results - Last 24 Hours (Table) 11/10/23 Range/Units 20:11 BUN 23 H (9-20) mg/dL Creatinine 1.51 H (0.66-1.25) mg/dL Glucose 107 H (74-99) mg/dL Assessment and Plan Assessment: 1. Acute exacerbation CHF with reduced EF - Patient has been placed on Lasix 40 mg IV every 12 hours - Monitor strict NEHAL's, daily weights, low salt and fluid restricted diet - Patient has been evaluated by cardiology; recommending to add aspirin 81 mg daily, atorvastatin 40 mg at night, hydralazine 25 mg 3 times a day, Isordil 10 mg 3 times a day, Toprol 25 mg daily and Farxiga 10 mg daily - Plan to add Aldactone if renal function improves 2. DANYA; we will hold off on fluid hydration given acute CHF; we will monitor renal function and electrolytes closely 3. Hypertension; hydralazine 25 mg 3 times a day, Toprol-XL 25 mg daily 4. Hyperlipidemia; Lipitor 40 mg by mouth daily at bedtime 5. Coronary artery disease; status post CABG 4 in 2014 6. Ischemic cardiomyopathy Add aspirin 81 mg daily, atorvastatin 40 mg at night, hydralazine 25 mg 3 times a day, Isordil 10 mg 3 times a day, Toprol 25 mg daily and Farxiga 10 mg daily Patient with ALLERGY to cary inhibitors with severe angioedema DVT prophylaxis; SCDs CODE STATUS; full code
[2023-11-11] MEDS: ATORVASTATIN 40 MG TAB PO SCH (20:34)
[2023-11-12 08:32] LABS: African American GFR (CKD) 54 (>60 ml/min/1.73 sqM); Anion Gap 13 mmol/L; Blood Urea Nitrogen 24 mg/dL (9-20); Calcium 9.1 mg/dL (8.4-10.2); Carbon Dioxide 26 mmol/L (22-30); Chloride 101 mmol/L (98-107); Glucose 80 mg/dL (74-99); Non-African American GFR(CKD) 47 (>60 ml/min/1.73 sqM); Potassium 3.8 mmol/L (3.5-5.1); Sodium 140 mmol/L (137-145)
[2023-11-12] MEDS: ISOSORBIDE DINITRATE 10 MG TAB PO SCH ×3 (09:14→21:10)
[2023-11-12] MEDS: ASPIRIN 81 MG PO SCH (09:14)
[2023-11-12] MEDS: hydrALAZINE HCL 25 MG TAB PO SCH ×2 (09:14→21:10)
[2023-11-12] MEDS: carvediloL 3.125 MG TAB PO SCH ×2 (09:15→16:15)
[2023-11-12] MEDS: FUROSEMIDE 20 MG TAB PO SCH (09:15)
[2023-11-12] MEDS: DAPAGLIFLOZIN PROPANEDIOL 10 MG TABLET PO SCH (09:15)
--- NOTE | 2023-11-12 17:01 | P.PN ---
Subjective Progress Note Date: 11/12/23 The patient is a 73-year-old male who presented to the hospital with increased shortness of breath and lower extremity edema. He previously followed in the office with Dr. Goodman but had not been seen since 2019. Patient states is up overnight he was able to lie flat without any orthopnea. He states he is yet to ambulate around the unit but denies any shortness of breath at rest. No chest pain, palpitations, or dizziness. GENERAL: Well-appearing, well-nourished and in no acute distress. NECK: Supple without JVD or thyromegaly. LUNGS: Breath sounds clear to auscultation bilaterally. Respiration equal and unlabored. No wheezes, rales or rhonchi. HEART: Irregular rate and rhythm. Systolic murmur. No rubs or gallops. S1 and S2 heard. EXTREMITIES: Normal range of motion, no edema. No clubbing or cyanosis. Peripheral pulses intact and strong. TELEMETRY: Sinus rhythm with frequent PVCs IMPRESSION: Acute on chronic heart failure with reduced ejection fraction, EF 15% Coronary artery disease status post CABG in 2014 Systolic murmur Ischemic cardio myopathy Acute kidney injury Hypertension ALLERGY to cary inhibitors PLAN: Reduce hydralazine and isosorbide dosing Switch metoprolol to carvedilol Avoid holding cardiomyopathy medications for mild hypotension Further recommendations based on clinical course I am dictating on behalf of Dr Shaheen Maldonado's history/physical and assessment/plan. Objective - Vital Signs Vital signs: Vital Signs Temp 97.9 F 11/12/23 14:18 Pulse 75 11/12/23 16:22 Resp 15 11/12/23 16:22 BP 131/73 11/12/23 16:22 Pulse Ox 98 11/12/23 16:22 FiO2 Intake & Output 11/11/23 11/12/23 11/12/23 18:59 06:59 18:59 Intake Total 240 1060 Output Total 1100 1999 Balance -860 -1999 1060 Weight 72.121 kg 61.7 kg Intake: Oral 240 1060 Output: Urine 1100 1999 - Labs CBC & Chem 7: 11/10/23 20:11 11/12/23 06:56 Labs: Abnormal Lab Results - Last 24 Hours (Table) 11/12/23 Range/Units 06:56 BUN 24 H (9-20) mg/dL Creatinine 1.48 H (0.66-1.25) mg/dL
--- NOTE | 2023-11-12 17:04 | P.PN ---
Subjective Progress Note Date: 11/12/23 73-year-old male presenting with chief complaint of shortness of breath. Patient reports that shortness of breath has been increasing over about 3 weeks. He also noted increasing lower extremity swelling which prompted him to come in today. He is having no chest pain. Patient reports that he has not been taking his blood pressure medication. He states that previously he had severe lip swelling to one of his blood pressure medications and he has been afraid to take his new medication and cause a similar reaction. No palpitations. No abdominal pain, nausea, vomiting. No numbness, tingling, weakness. EKG reveals sinus mechanism with PVCs. Chest xray cardiomegaly with pleural effusions Laboratory data: Creatinine 1.51. Troponin negative 2. ProBNP 6650. Current home cardiac medications include aspirin 81 mg daily Most recent echocardiogram obtained in 2019 revealed ejection fraction 38% with mild MR and mild TR Patient underwent 4 vessel CABG in June 2015 with DUQUE to LAD, VGOM1, VGD1, VGPDA Objective - Vital Signs Vital signs: Vital Signs Temp 97.3 F L 11/12/23 07:00 Pulse 60 11/12/23 07:00 Resp 14 11/12/23 07:00 BP 130/89 11/12/23 07:00 Pulse Ox 95 11/12/23 07:00 FiO2 Intake & Output 11/11/23 11/12/23 11/12/23 18:59 06:59 18:59 Intake Total 240 880 Output Total 1100 2000 Balance -860 -2000 880 Weight 72.121 kg 61.7 kg Intake: Oral 240 880 Output: Urine 1100 1999 - Exam General appearance: alert, in no apparent distress Head exam: Present: atraumatic, normocephalic Eye exam: Present: normal appearance Neck exam: Present: normal inspection Respiratory exam: Present: normal lung sounds bilaterally. Absent: respiratory distress, wheezes, rales, rhonchi, stridor Cardiovascular Exam: Present: regular rate, normal rhythm, normal heart sounds. Absent: systolic murmur, diastolic murmur, rubs, gallop, clicks Extremities exam: Present: pedal edema Neurological exam: Present: alert, oriented X3 Psychiatric exam: Present: normal affect, normal mood Skin exam: Present: warm, dry - Labs CBC & Chem 7: 11/10/23 20:11 11/12/23 06:56 Labs: Abnormal Lab Results - Last 24 Hours (Table) 11/11/23 11/12/23 Range/Units 09:55 06:56 BUN 24 H (9-20) mg/dL Creatinine 1.48 H (0.66-1.25) mg/dL HDL Cholesterol 67.00 H (40.00-60.00) mg/dL Assessment and Plan Assessment: 1. Acute exacerbation CHF with reduced EF - Patient has been placed on Lasix 40 mg IV every 12 hours - Monitor strict NEHAL's, daily weights, low salt and fluid restricted diet - Patient has been evaluated by cardiology; recommending to add aspirin 81 mg daily, atorvastatin 40 mg at night, hydralazine 25 mg 3 times a day, Isordil 10 mg 3 times a day, Toprol 25 mg daily and Farxiga 10 mg daily - Plan to add Aldactone if renal function improves 2. DANYA; we will hold off on fluid hydration given acute CHF; we will monitor renal function and electrolytes closely 3. Hypertension; hydralazine 25 mg 3 times a day, Toprol-XL 25 mg daily 4. Hyperlipidemia; Lipitor 40 mg by mouth daily at bedtime 5. Coronary artery disease; status post CABG 4 in 2014 6. Ischemic cardiomyopathy Add aspirin 81 mg daily, atorvastatin 40 mg at night, hydralazine 25 mg 3 times a day, Isordil 10 mg 3 times a day, Toprol 25 mg daily and Farxiga 10 mg daily Patient with ALLERGY to cary inhibitors with severe angioedema DVT prophylaxis; SCDs CODE STATUS; full code
[2023-11-12] MEDS: ATORVASTATIN 40 MG TAB PO SCH (21:10)
[2023-11-13 07:10] VITALS: RESP 14
[2023-11-13] MEDS: ISOSORBIDE DINITRATE 10 MG TAB PO SCH (09:38)
[2023-11-13] MEDS: ASPIRIN 81 MG PO SCH (09:38)
[2023-11-13] MEDS: DAPAGLIFLOZIN PROPANEDIOL 10 MG TABLET PO SCH (09:39)
[2023-11-13] MEDS: hydrALAZINE HCL 25 MG TAB PO SCH (09:39)
[2023-11-13] MEDS: FUROSEMIDE 20 MG TAB PO SCH (09:39)
[2023-11-13] MEDS: carvediloL 3.125 MG TAB PO SCH (09:39)
[2023-11-13 10:33] LABS: Blood Urea Nitrogen 23.8 mg/dL (9.0-27.0); Calcium 8.8 mg/dL (8.7-10.3); Carbon Dioxide 27.7 mmol/L (21.6-31.8); Chloride 103 mmol/L (96-109); Glucose 89 mg/dL (70-110); Potassium 3.8 mmol/L (3.5-5.5); Sodium 140 mmol/L (135-145)
--- NOTE | 2023-11-13 11:52 | P.PN ---
Subjective Progress Note Date: 11/13/23 The patient is a 73-year-old male who presented to the hospital with increased shortness of breath and lower extremity edema. He previously followed in the office with Dr. Goodman but had not been seen since 2019. Over the course of his admission he has been treated for congestive heart failure exacerbation. Medications have been maximized and he has been tolerating without side effects. He is able to ambulate the unit without shortness of breath. He denies any shortness of breath at rest or orthopnea. No chest pain, palpitations, or dizziness. GENERAL: Well-appearing, well-nourished and in no acute distress. NECK: Supple without JVD or thyromegaly. LUNGS: Breath sounds clear to auscultation bilaterally. Respiration equal and unlabored. No wheezes, rales or rhonchi. HEART: Irregular rate and rhythm. Soft systolic murmur. No rubs or gallops. S1 and S2 heard. EXTREMITIES: Normal range of motion, no edema. No clubbing or cyanosis. Peripheral pulses intact and strong. TELEMETRY: Sinus rhythm with frequent PVCs. 2 runs of nonsustained ventricular tachycardia IMPRESSION: Acute on chronic heart failure with reduced ejection fraction, EF 15% Coronary artery disease status post CABG in 2015 Systolic murmur Ischemic cardio myopathy Acute kidney injury Hypertension Nonsustained ventricular tachycardia ALLERGY to cary inhibitors PLAN: Continue maximal medical treatment Please discharge the patient with his current cardiac medication regimen Outpatient follow-up with primary machinist general Dr. Goodman in one week I am dictating on behalf of Dr Shaheen Maldonado's history/physical and as sessment/plan. Objective - Vital Signs Vital signs: Vital Signs Temp 98.0 F 11/13/23 07:00 Pulse 62 11/13/23 07:00 Resp 14 11/13/23 07:00 BP 114/79 11/13/23 09:37 Pulse Ox 99 11/13/23 07:00 FiO2 Intake & Output 11/12/23 11/13/23 11/13/23 18:59 06:59 18:59 Intake Total 1060 222 Output Total 800 Balance 1060 -578 Weight 62.6 kg Intake: Oral 1060 222 Output: Urine 800 - Labs CBC & Chem 7: 11/10/23 20:11 11/13/23 04:49 Labs: Abnormal Lab Results - Last 24 Hours (Table) 11/13/23 Range/Units 04:49 Est GFR (CKD-EPI) 53 L (>=60)
[2023-11-13 14:28] VITALS: BP 104/58; PULSE 64; TEMP 98.3
--- NOTE | 2023-11-13 18:00 | P.DS ---
Providers Date of admission: 11/11/23 02:19 Expected date of discharge: 11/13/23 Attending physician: Guido Kong Consults: 11/11/23 02:04 Consult Physician Urgent Consulting Provider: [facility] Consult Reason/Comments: CHF Do you want consulting provider notified?: Yes, Notify in am [facility]: 73-year-old male presenting with chief complaint of shortness of breath. Patient reports that shortness of breath has been increasing over about 3 weeks. He also noted increasing lower extremity swelling which prompted him to come in today. He is having no chest pain. Patient reports that he has not been taking his blood pressure medication. He states that previously he had severe lip swelling to one of his blood pressure medications and he has been afraid to take his new medication and cause a similar reaction. No palpitations. No abdominal pain, nausea, vomiting. No numbness, tingling, weakness. EKG reveals sinus mechanism with PVCs. Chest xray cardiomegaly with pleural effusions Laboratory data: Creatinine 1.51. Troponin negative 2. ProBNP 6650. Current home cardiac medications include aspirin 81 mg daily Most recent echocardiogram obtained in 2019 revealed ejection fraction 38% with mild MR and mild TR Patient underwent 4 vessel CABG in June 2015 with DUQUE to LAD, VGOM1, VGD1, VGPDA 1. Acute exacerbation CHF with reduced EF - Patient has been placed on Lasix 40 mg IV every 12 hours - Monitor strict NEHAL's, daily weights, low salt and fluid restricted diet - Patient has been evaluated by cardiology; recommending to add aspirin 81 mg daily, atorvastatin 40 mg at night, hydralazine 25 mg 3 times a day, Isordil 10 mg 3 times a day, Toprol 25 mg daily and Farxiga 10 mg daily - Plan to add Aldactone if renal function improves 2. DANYA; we will hold off on fluid hydration given acute CHF; we will monitor renal function and electrolytes closely 3. Hypertension; hydralazine 25 mg 3 times a day, Toprol-XL 25 mg daily 4. Hyperlipidemia; Lipitor 40 mg by mouth daily at bedtime 5. Coronary artery disease; status post CABG 4 in 2014 6. Ischemic cardiomyopathy Add aspirin 81 mg daily, atorvastatin 40 mg at night, hydralazine 25 mg 3 times a day, Isordil 10 mg 3 times a day, Toprol 25 mg daily and Farxiga 10 mg daily Patient with ALLERGY to cary inhibitors with severe angioedema Continue maximal medical treatment Please discharge the patient with his current cardiac medication regimen Outpatient follow-up with primary parking meter collector Dr. Goodman in one week Patient Condition at Discharge: Fair Plan - Discharge Summary Discharge Rx Participant: Yes New Discharge Prescriptions: New Atorvastatin [Lipitor] 40 mg PO HS 30 Days #30 tab hydrALAZINE HCL [Apresoline] 12.5 mg PO BID 30 Days #60 tab carvediloL [Coreg] 3.125 mg PO BID-W/MEALS 30 Days #60 tab Dapagliflozin Propanediol [Farxiga] 10 mg PO DAILY 30 Days #30 tab Isosorbide Dinitrate [Isordil] 5 mg PO TID 30 Days #90 tab Furosemide [Lasix] 20 mg PO DAILY 30 Days #60 tab Continue Multivitamins, Thera [Multivitamin (formulary)] 1 tab PO DAILY Aspirin EC [Ecotrin Low Dose] 81 mg PO DAILY Discharge Medication List Aspirin EC [Ecotrin Low Dose] 81 mg PO DAILY 11/11/23 [History] Multivitamins, Thera [Multivitamin (formulary)] 1 tab PO DAILY 11/11/23 [History] Atorvastatin [Lipitor] 40 mg PO HS 30 Days #30 tab 11/13/23 [Rx] Dapagliflozin Propanediol [Farxiga] 10 mg PO DAILY 30 Days #30 tab 11/13/23 [Rx] Furosemide [Lasix] 20 mg PO DAILY 30 Days #60 tab 11/13/23 [Rx] Isosorbide Dinitrate [Isordil] 5 mg PO TID 30 Days #90 tab 11/13/23 [Rx] carvediloL [Coreg] 3.125 mg PO BID-W/MEALS 30 Days #60 tab 11/13/23 [Rx] hydrALAZINE HCL [Apresoline] 12.5 mg PO BID 30 Days #60 tab 11/13/23 [Rx] Follow up Appointment(s)/Referral(s): Ananda Naik MD [Primary Care Provider] - 1-2 days Patient Instructions/Handouts: Heart Failure (DC) Discharge Disposition: HOME SELF-CARE
== END 2023-11-13 15:26 | disposition home or self-care (01) ==
LOC: EC 20:01 → 6NMEDSUR 11-11 02:19
PROVIDERS: ADMIT Hospitalist; ATTEND Hospitalist
DX: I11.0 Hypertensive heart disease with heart failure (principal); I50.23 Acute on chronic systolic (congestive) heart failure; K21.9 Gastro-esophageal reflux disease without esophagitis; R55 Syncope and collapse; T46.5X6A Underdosing of other antihypertensive drugs, initial encounter; Z91.128 Patient's intentional underdosing of medication regimen for other reason; I25.5 Ischemic cardiomyopathy; E78.5 Hyperlipidemia, unspecified; I25.10 Atherosclerotic heart disease of native coronary artery without angina pectoris; I49.3 Ventricular premature depolarization; N17.9 Acute kidney failure, unspecified; R01.1 Cardiac murmur, unspecified; Z95.1 Presence of aortocoronary bypass graft; Z79.899 Other long term (current) drug therapy; Z79.82 Long term (current) use of aspirin; Z88.6 Allergy status to analgesic agent; Z88.8 Allergy status to other drugs, medicaments and biological substances; Z82.49 Family history of ischemic heart disease and other diseases of the circulatory system
CPT/HCPCS: 96376 ×2; 96374; 96375; 99285; 36415; 93005; 93306; 83880; 80061; 80053; 80048 ×2; 84484 ×2; 85025; 85610; 85730; 71046; G0378 ×3; J0360; J1940

== ENCOUNTER → 2023-12-31 | Outpatient (CLI) | payer MEDICARE, BC ==
[2023-12-31 12:09] LABS: Potassium 4.3 mmol/L (3.5-5.1)
[2023-12-31 12:10] LABS: ALT 39 U/L (4-49); AST 33 U/L (17-59); African American GFR (CKD) 54 (>60 ml/min/1.73 sqM); Albumin 3.9 g/dL (3.5-5.0); Albumin/Globulin Ratio 1.3; Alkaline Phosphatase 114 U/L (38-126); Anion Gap 4 mmol/L; Blood Urea Nitrogen 19 mg/dL (9-20); Carbon Dioxide 29 mmol/L (22-30); Chloride 109 mmol/L (98-107); Globulin 3.1 g/dL; Glucose 89 mg/dL (74-99); Non-African American GFR(CKD) 47 (>60 ml/min/1.73 sqM); Sodium 142 mmol/L (137-145); Total Bilirubin 1.4 mg/dL (0.2-1.3)
[2023-12-31 12:17] LABS: NT-Pro-B-Type Natriuretic Pept 3750 pg/mL
[2023-12-31 22:12] LABS: Chol/HDL Ratio 2.22 Ratio; LDL Cholesterol,Calculated 74.3 mg/dL (0.0-131.0); VLDL Calculation 8.06 mg/dL (5.00-40.00)
== END | disposition home or self-care (01) ==
LOC: LABWHC1 11:26
PROVIDERS: ATTEND Internal Medicine Interventional Cardiology
DX: I25.5 Ischemic cardiomyopathy (principal); I50.22 Chronic systolic (congestive) heart failure; E78.2 Mixed hyperlipidemia
CPT/HCPCS: 36415; 80053; 80061; 83880

== ENCOUNTER 2024-04-20 16:06 | Emergency (ER) | payer MEDICARE, BC ==
[2024-04-20 16:50] LABS: Glucose,Whole Blood 134 mg/dL (70-110)
[2024-04-20 17:34] LABS: Basophils % (A) 1 %; Eosinophils # (A) 0.1 k/uL (0-0.7); Eosinophils % (A) 2 %; HGB 13.2 gm/dL (13.0-17.5); Lymphocytes # (A) 1.2 k/uL (1.0-4.8); Lymphocytes % (A) 18 %; MCH 27.7 pg (25.0-35.0); MCHC 30.6 g/dL (31.0-37.0); MCV 90.7 fL (80.0-100.0); Mean Platelet Volume 10.3; Monocytes # (A) 0.5 k/uL (0-1.0); Monocytes % (A) 7 %; Neutrophils # (A) 4.5 k/uL (1.3-7.7); Neutrophils % (A) 71 %; Platelet Count 144 k/uL (150-450); RBC 4.75 m/uL (4.30-5.90); RDW 13.8 % (11.5-15.5); WBC 6.4 k/uL (3.8-10.6)
[2024-04-20 17:43] LABS: ALT 30 U/L (4-49); African American GFR (CKD) 53 (>60 ml/min/1.73 sqM); Albumin 4.2 g/dL (3.5-5.0); Anion Gap 5 mmol/L; Blood Urea Nitrogen 21 mg/dL (9-20); Calcium 8.8 mg/dL (8.4-10.2); Carbon Dioxide 28 mmol/L (22-30); Chloride 104 mmol/L (98-107); Creatine Kinase 103 U/L (55-170); Glucose 129 mg/dL (74-99); Non-African American GFR(CKD) 46 (>60 ml/min/1.73 sqM); Sodium 137 mmol/L (137-145); Total Bilirubin 1.6 mg/dL (0.2-1.3); Total Protein 7.3 g/dL (6.3-8.2)
[2024-04-20 17:46] LABS: AST 36 U/L (17-59); Potassium 4.2 mmol/L (3.5-5.1)
[2024-04-20 17:47] LABS: Alkaline Phosphatase 100 U/L (38-126)
[2024-04-20 17:49] LABS: Partial Thromboplastin Time 25.5 sec (22.0-30.0); Prothrombin Time 11.3 sec (10.0-12.5)
--- NOTE | 2024-04-20 18:36 | CT ---
EXAMINATION TYPE: CT brain wo con CT DLP: 1093.8 mGycm, Automated exposure control for dose reduction was used. DATE OF EXAM: 04/20/2024 6:10 PM COMPARISON: None. CLINICAL INDICATION:Male, 73 years old with history of Neuro deficit, acute, stroke suspected, Rt chaka ed facial droop x1hr. TECHNIQUE: Brain: Axial CT images of the brain were obtained with coronal and sagittal reformats created and rev iewed. Contrast used: None. Oral contrast used: None. FINDINGS: Brain: Extra-axial spaces: No abnormal extra-axial fluid collections. Ventricular system: Within normal limits Cerebral parenchyma: Cerebral atrophy. No acute intraparenchymal hemorrhage or mass effect. The rivera -white junction is well differentiated. Scattered hypoattenuating areas are seen within the white mat ter. Cerebellum: Unremarkable. Mass effect: No evidence of midline shift. Intracranial vasculature: Atherosclerotic calcifications of the intracranial vessels. Soft tissues: Normal. Calvarium/osseous structures: No depressed skull fracture. Paranasal sinuses and mastoid air cells: Mild scattered paranasal sinus disease. Visualized orbits: Orbital contents are intact. IMPRESSION: 1. No acute intracranial process. 2. Nonspecific white matter changes, likely secondary to chronic small vessel ischemic disease.
--- NOTE | 2024-04-20 18:38 | XR ---
EXAMINATION TYPE: XR chest 2V DATE OF EXAM: 04/20/2024 6:10 PM CLINICAL INDICATION:Male, 73 years old with history of altered mental status; COMPARISON: Chest radiographs from 11/10/2023 TECHNIQUE: XR chest 2V Frontal and lateral views of the chest. FINDINGS: Lungs/Pleura: There is no evidence of pleural effusion, focal consolidation, or pneumothorax. Pulmonary vascularity: Unremarkable. Heart/mediastinum: Cardiomediastinal silhouette is unremarkable. Musculoskeletal: No acute osseous pathology. Midline sternotomy wires are noted. IMPRESSION: No acute cardiopulmonary disease/process.
--- NOTE | 2024-04-20 19:33 | ED ---
General Adult HPI - General Chief complaint: Neuro Symptoms/Deficit Stated complaint: poss stroke Time Seen by Provider: 04/20/24 16:10 Source: patient, family Mode of arrival: EMS - History of Present Illness Initial comments: 74-year-old male with past medical history of reflux and GERD who presents to the emergency department with possible strokelike symptoms. Patient was driving with his in the car when he had an episode of unresponsiveness. He states that he felt fuzzy. The car was at a stop. The reported the patient went completely unresponsive. This lasted for approximately 10 minutes before EMS arrived. There was concern that there was some facial droop however this was not confirmed by the . He states that he has had previous episodes of syncope and this felt similar in nature. He denies any injuries from passing out. There is no seizure-like activity. He denies having any chest pain or difficulty breathing. Reports to feeling back to his baseline at this time. No lateralizing weakness. No other alleviating, precipitating or modifying factors - Related Data Home Medications Medication Instructions Recorded Confirmed Atorvastatin [Lipitor] 40 mg PO DAILY 04/20/24 04/20/24 Ezetimibe [Zetia] 10 mg PO DAILY 04/20/24 04/20/24 Mv-Min/Folic/K1/Lycopen/Lutein 1 tab PO DAILY 04/20/24 04/20/24 [Centrum Silver Men Tablet] carvediloL [Coreg] 6.25 mg PO BID-W/MEALS 04/20/24 04/20/24 hydrALAZINE HCL [Apresoline] 25 mg PO BID 04/20/24 04/20/24 Previous Rx's Medication Instructions Recorded Dapagliflozin Propanediol [Farxiga] 10 mg PO DAILY 30 Days #30 tab 11/13/23 Furosemide [Lasix] 20 mg PO DAILY 30 Days #60 tab 11/13/23 Isosorbide Dinitrate [Isordil] 5 mg PO TID 30 Days #90 tab 11/13/23 Allergies Allergy/AdvReac Type Severity Reaction Status Date / Time HERSON Inhibitors Allergy angioedema Verified 04/20/24 18:26 Review of Systems ROS Statement: Those systems with pertinent positive or pertinent negative responses have been documented in the HPI. ROS Other: All systems not noted in ROS Statement are negative. Past Medical History Past Medical History: GERD/Reflux, Syncope History of Any Multi-Drug Resistant Organisms: None Reported Past Surgical History: No Surgical Hx Reported Additional Past Surgical History / Comment(s): lt knee sx scope and scraping done Past Anesthesia/Blood Transfusion Reactions: No Reported Reaction Past Psychological History: No Psychological Hx Reported Past Alcohol Use History: None Reported Past Drug Use History: None Reported - Past Family History Father Family Medical History: Coronary Artery Disease (CAD), Hypertension Additional Family Medical History / Comment(s): cabg Mother Family Medical History: Coronary Artery Disease (CAD) Additional Family Medical History / Comment(s): aaa, cabg General Exam General appearance: alert, in no apparent distress Head exam: Present: atraumatic, normocephalic, normal inspection Eye exam: Present: normal appearance, PERRL, EOMI. Absent: scleral icterus, conjunctival injection, periorbital swelling ENT exam: Present: normal exam, mucous membranes moist Neck exam: Present: normal inspection. Absent: tenderness, meningismus, lympha denopathy Respiratory exam: Present: normal lung sounds bilaterally. Absent: respiratory distress, wheezes, rales, rhonchi, stridor Cardiovascular Exam: Present: regular rate, normal rhythm, normal heart sounds. Absent: systolic murmur, diastolic murmur, rubs, gallop, clicks GI/Abdominal exam: Present: soft, normal bowel sounds. Absent: distended, tenderness, guarding, rebound, rigid Extremities exam: Present: normal inspection, full ROM, normal capillary refill. Absent: tenderness, pedal edema, joint swelling, calf tenderness Back exam: Present: normal inspection Neurological exam: Present: alert, oriented X3, CN II-XII intact Psychiatric exam: Present: normal affect, normal mood Skin exam: Present: warm, dry, intact, normal color. Absent: rash Course Vital Signs 04/20/24 04/20/24 16:10 19:44 Temperature 97.4 F L 97.8 F Pulse Rate 63 66 Respiratory 16 18 Rate Blood Pressure 119/75 142/85 O2 Sat by Pulse 94 L 99 Oximetry Medical Decision Making - Medical Decision Making Was pt. sent in by a medical professional or institution (, PA, INSULATION BLOWER, urgent care, hospital, or custodial...) When possible be specific @ -No Did you speak to anyone other than the patient for history (EMS, parent, family, police, friend...)? What history was obtained from this source @ -I spoke with the patient's in regards to history as she was present when the episode happened Did you review nursing and triage notes (agree or disagree)? Why? @ -I reviewed and agree with nursing and triage notes Were old charts reviewed (outside hosp., previous admission, EMS record, old EKG, old radiological studies, urgent care reports/EKG's, custodial records)? Report findings @ -No old charts were reviewed Differential Diagnosis (chest pain, altered mental status, abdominal pain women, abdominal pain men, vaginal bleeding, weakness, fever, dyspnea, syncope, headache, dizziness, GI bleed, back pain, seizure, CVA, palpatations, mental health, musculoskeletal)? @ -Differential Syncope: Valvular disease, hypertrophic cardiomyopathy, pulmonary embolism, tamponade, t achycardia, bradycardia, [place], hypovolemia, hemorrhage, dissection, anemia, intracranial hemorrhage, seizure, hypoglycemia, carbon monoxide poisoning, this is not meant to be an all-inclusive list. EKG interpreted by me (3pts min.). @ -Yes and demonstrates sinus rhythm with a rate of 62. MT interval 178. QRS 95. QTc of 429. Some ST elevation in V3. No reciprocal changes X-rays interpreted by me (1pt min.). @ -Yes and demonstrates no acute process CT interpreted by me (1pt min.). @ -Yes and demonstrates no acute process U/S interpreted by me (1pt. min.). @ -None done What testing was considered but not performed or refused? (CT, X-rays, U/S, labs)? Why? @ -None What meds were considered but not given or refused? Why? @ -None Did you discuss the management of the patient with other professionals (professionals i.e. , PA, INSULATION BLOWER, lab, RT, psych nurse, long term care social worker, atomic physics teacher, teacher, officer captain, family service caseworker)? Give summary @ -No Was smoking cessation discussed for >3mins.? @ -No Was critical care preformed (if so, how long)? @ -No Were there social determinants of health that impacted care today? How? (Homelessness, low income, unemployed, alcoholism, drug addiction, tra nsportation, low edu. Level, literacy, decrease access to med. care, longterm, rehab)? @ -No Was there de-escalation of care discussed even if they declined (Discuss DNR or withdrawal of care, Hospice)? DNR status @ -No What co-morbidities impacted this encounter? (DM, HTN, Smoking, COPD, CAD, Cancer, CVA, ARF, Chemo, Hep., AIDS, mental health diagnosis, sleep apnea, morbid obesity)? @ -Recurrent syncope, coronary artery disease with status post bypass Was patient admitted / discharged? Hospital course, mention meds given and route, prescriptions, significant lab abnormalities, going to OR and other pertinent info. @ -Upon arrival patient was seen and evaluated in room 17. Thorough history and physical exam was performed. NIH is assessed and is 0. Patient feels back to his baseline. He was agreeable to laboratory studies. Chest x-ray and CT of his brain were also performed. Upon return the results are discussed with the patient. Did offer overnight observation on a teletypesetter monitor however patient refused and stated that he wanted to go home. Admits to recurrent episodes of this in the past. Family was at bedside and agreeable to taking the patient home. He needs follow-up with his primary care doctor for further evaluation of his symptoms. Recommend echo and Holter monitoring. Return for any new or worsening symptoms. Patient agreeable to plan was discharged in stable condition Undiagnosed new problem with uncertain prognosis? @ -Yes Drug Therapy requiring intensive monitoring for toxicity (Heparin, Nitro, Insulin, Cardizem)? @ -No Were any procedures done? @ -No Diagnosis/symptom? @ -Acute transient encephalopathy, suspected syncope Acute, or Chronic, or Acute on Chronic? @ -Acute Uncomplicated (without systemic symptoms) or Complicated (systemic symptoms)? @ -Complicated Side effects of treatment? @ -No Exacerbation, Progression, or Severe Exacerbation? @ -No Poses a threat to life or bodily function? How? (Chest pain, [place], [place], pneumonia, PE, COPD, DKA, ARF, appy, cholecystitis, CVA, Diverticulitis, Homicidal, Suicidal, threat to staff... and all critical care pts) @ -No - Lab Data Result diagrams: 04/20/24 17:15 04/20/24 17:15 Lab Results 04/20/24 04/20/24 04/20/24 Range/Units 16:47 17:15 17:15 WBC 6.4 (3.8-10.6) k/uL RBC 4.75 (4.30-5.90) m/uL Hgb 13.2 (13.0-17.5) gm/dL Hct 43.0 (39.0-53.0) % MCV 90.7 (80.0-100.0) fL MCH 27.7 (25.0-35.0) pg MCHC 30.6 L (31.0-37.0) g/dL RDW 13.8 (11.5-15.5) % Plt Count 144 L (150-450) k/uL MPV 10.3 Neutrophils % 71 % Lymphocytes % 18 % Monocytes % 7 % Eosinophils % 2 % Basophils % 1 % Neutrophils # 4.5 (1.3-7.7) k/uL Lymphocytes # 1.2 (1.0-4.8) k/uL Monocytes # 0.5 (0-1.0) k/uL Eosinophils # 0.1 (0-0.7) k/uL Basophils # 0.0 (0-0.2) k/uL PT 11.3 (10.0-12.5) sec INR 1.0 (<1.2) APTT 25.5 (22.0-30.0) sec Sodium (137-145) mmol/L Potassium (3.5-5.1) mmol/L Chloride (98-107) mmol/L Carbon Dioxide (22-30) mmol/L Anion Gap mmol/L BUN (9-20) mg/dL Creatinine (0.66-1.25) mg/dL Est GFR (CKD-EPI)AfAm (>60 ml/min/1.73 sqM) Est GFR (CKD-EPI)NonAf (>60 ml/min/1.73 sqM) Glucose (74-99) mg/dL POC Glucose (mg/dL) 134 H (70-110) mg/dL POC Glu Director Data Management ID Amita, Mayelin Calcium (8.4-10.2) mg/dL Total Bilirubin (0.2-1.3) mg/dL AST (17-59) U/L ALT (4-49) U/L Alkaline Phosphatase (38-126) U/L Creatine Kinase (55-170) U/L Troponin I (0.000-0.034) ng/mL Total Protein (6.3-8.2) g/dL Albumin (3.5-5.0) g/dL 04/20/24 04/20/24 Range/Units 17:15 17:15 WBC (3.8-10.6) k/uL RBC (4.30-5.90) m/uL Hgb (13.0-17.5) gm/dL Hct (39.0-53.0) % MCV (80.0-100.0) fL MCH (25.0-35.0) pg MCHC (31.0-37.0) g/dL RDW (11.5-15.5) % Plt Count (150-450) k/uL MPV Neutrophils % % Lymphocytes % % Monocytes % % Eosinophils % % Basophils % % Neutrophils # (1.3-7.7) k/uL Lymphocytes # (1.0-4.8) k/uL Monocytes # (0-1.0) k/uL Eosinophils # (0-0.7) k/uL Basophils # (0-0.2) k/uL PT (10.0-12.5) sec INR (<1.2) APTT (22.0-30.0) sec Sodium 137 (137-145) mmol/L Potassium 4.2 (3.5-5.1) mmol/L Chloride 104 (98-107) mmol/L Carbon Dioxide 28 (22-30) mmol/L Anion Gap 5 mmol/L BUN 21 H (9-20) mg/dL Creatinine 1.51 H (0.66-1.25) mg/dL Est GFR (CKD-EPI)AfAm 53 (>60 ml/min/1.73 sqM) Est GFR (CKD-EPI)NonAf 46 (>60 ml/min/1.73 sqM) Glucose 129 H (74-99) mg/dL POC Glucose (mg/dL) (70-110) mg/dL POC Glu Director Data Management ID Calcium 8.8 (8.4-10.2) mg/dL Total Bilirubin 1.6 H (0.2-1.3) mg/dL AST 36 (17-59) U/L ALT 30 (4-49) U/L Alkaline Phosphatase 100 (38-126) U/L Creatine Kinase 103 (55-170) U/L Troponin I 0.018 (0.000-0.034) ng/mL Total Protein 7.3 (6.3-8.2) g/dL Albumin 4.2 (3.5-5.0) g/dL Disposition Clinical Impression: Syncope and collapse Disposition: HOME SELF-CARE Condition: Stable Instructions (If sedation given, give patient instructions): Syncope (ED) Additional Instructions: Please follow-up with your primary care doctor and let them know about the events of today. Return to the emergency department for any new or worsening symptoms Is patient prescribed a controlled substance at d/c from ED?: No Referrals: Deep Briscoe DO [Primary Care Provider] - 1-2 days Time of Disposition: 19:32
[2024-04-20 20:25] VITALS: BP 142/85; PULSE 66; RESP 18; TEMP 97.8
== END 2024-04-20 19:44 | disposition home or self-care (01) ==
LOC: EC 16:06
DX: R55 Syncope and collapse (principal); G93.40 Encephalopathy, unspecified; Z88.8 Allergy status to other drugs, medicaments and biological substances
CPT/HCPCS: 36415; 70450; 71046; 80053; 82550; 84484; 85025; 85610; 85730; 93005; 99285